=== PATIENT | female | born 1975 | race African-American/Black ===

== ENCOUNTER 2021-08-27 17:19 | Emergency (ER) | payer OTHER ==
[~2021-08-27] VITALS: Ht 165.1 cm; Wt 81.6 kg
[~2021-08-27 17:19] MED LIST: GLIP5TAB11 PO; METF-446 PO
[2021-08-27] MEDS ORDERED: AmLODIPine BESYLATE 10 MG TABLET PO ONE (21:15)
[2021-08-27] MEDS ORDERED: CloNIDine HCL 0.1 MG TABLET PO ONE (21:30)
[2021-08-27] MEDS ORDERED: HydrALAZINE HCL 20 MG/ML VIAL IVP ONE (22:00)
[2021-08-27 22:44] VITALS: BP 202/112
== END 2021-08-27 23:02 | disposition home or self-care (01) ==
LOC: EMS 17:20
DX: S09.90XA Unspecified injury of head, initial encounter (principal); I10 Essential (primary) hypertension; E11.9 Type 2 diabetes mellitus without complications; Z79.84 Long term (current) use of oral hypoglycemic drugs; V49.9XXA Car occupant (driver) (passenger) injured in unspecified traffic accident, initial encounter; Y93.89 Activity, other specified; Y92.89 Other specified places as the place of occurrence of the external cause; Y99.8 Other external cause status
CPT/HCPCS: 70450; 93005; 96374; 99285; J0360